=== PATIENT | female | born 1990 | race Caucasian/White ===

== ENCOUNTER 2022-08-16 18:04 | Outpatient (CLI) | payer BC ==
--- NOTE | 2022-08-16 18:46 | XRAY Report ---
PROCEDURE: Toe(s) LT INDICATIONS: PAIN IN LEFT TOE TECHNIQUE: 4 views of the fifth toe(s) acquired. COMPARISON: None FINDINGS: Bones: No fractures or dislocations. No suspicious bony lesions. Soft tissues: No suspicious soft tissue densities. IMPRESSION: No gross fifth toe fracture or dislocation. No gross soft tissue abnormality. Reviewed by: Canelo Mo MD on 08/16/2022 6:45 PM PST Approved by: Canelo Mo MD on 08/16/2022 6:45 PM PST Station ID: [id number]
== END 2022-08-16 18:05 | disposition home or self-care (01) ==
LOC: DI 18:04
PROVIDERS: ATTEND Registered Nurse
DX: M79.675 Pain in left toe(s) (principal)
CPT/HCPCS: 73660